=== PATIENT | male | born 1990 | race Caucasian/White ===

== ENCOUNTER 2017-04-04 19:02 | Emergency (ER) | payer BC ==
[~2017-04-04] VITALS: Ht 175.3 cm; Wt 81.6 kg
[~2017-04-04 19:02] MED LIST: LORA-404 PO; OXYC-197 PO; PARO20TA5 PO
[2017-04-04] MEDS ORDERED: PARO40TA PO (19:10)
--- NOTE | 2017-04-04 19:10 | ED General ---
General Chief Complaint: General Problems/Pain Stated Complaint: MEDICINE WITHDRAWL Source of Information: Patient Exam Limitations: No Limitations History of Present Illness Time Seen by Provider: 19:10 Initial Comments To ER with reports of being out of his Paxil 40 mg tablets which he takes daily and has taken daily for 2 years. This is taken for anxiety. He's been out of them for 4 days. He states that he has refills left on his bottle of Paxil but the pharmacy will not fill it because the prescriber who wrote this no longer practices. He is scheduled to see [facility] on Friday of next week. His symptoms of withdrawal including anxiety, shakiness, nausea and stuttering speech. Timing/Duration: 3-4 Days Severity: Moderate Allergies and Home Medications Allergies Coded Allergies: NKANo Known Allergies (Verified Allergy, Mild, 05/15/15) Home Medications Lorazepam 0.5 Mg Tablet, 0.5 MG PO BID PRN for ANXIETY, #14 Prescribed by: FELIPE WEATHERS on 08/06/162028 Oxycodone HCl/Acetaminophen 1 Each Tablet, 1-2 EACH PO Q6H, #35 Prescribed by: ELDER JOHNSON on 05/15/15 1855 Paroxetine HCl 20 Mg Tablet, 20 MG PO DAILY, (Reported) Paroxetine HCl 40 Mg Tablet, 40 MG PO DAILY, #30 Prescribed by: FELIPE WEATHERS on 04/04/171909 Constitutional: see HPI EENTM: see HPI Respiratory: no symptoms reported Cardiovascular: no symptoms reported Genitourinary: no symptoms reported Musculoskeletal: no symptoms reported Skin: no symptoms reported Psychiatric/Neurological: See HPI, Anxiety Hematologic/Lymphatic: No Symptoms Reported Past Ynwsyxu-Jxqtdh-Zxsenh Hx Patient Social History Recent Foreign Travel: No Contact w/Someone Who Travel: No Recent Hopitalizations: No Seasonal Allergies Seasonal Allergies: No Surgeries HX Surgeries: Yes (Bilateral ear tubes) Surgeries: Adenoidectomy, Appendectomy, Tonsillectomy Respiratory Hx Respiratory Disorders: Yes Respiratory Disorders: Asthma Cardiovascular Hx Cardiac Disorders: No Neurological Hx Neurological Disorders: No Reproductive System Hx Reproductive Disorders: No Genitourinary Hx Genitourinary Disorders: No Gastrointestinal Hx Gastrointestinal Disorders: No Musculoskeletal Hx Musculoskeletal Disorders: No Endocrine Hx Endocrine Disorders: No HEENT HX ENT Disorders: Yes (tubes in ears as child ) HEENT Disorders: Tonsilitis Cancer Hx Cancer: No Psychosocial Hx Psychiatric Problems: Yes Behavioral Health Disorders: Anxiety Integumentary HX Skin/Integumentary Disorder: No Blood Transfusions Hx Blood Disorders: No Adverse Reaction to a Blood Tr: No Family Medical History Family Medial History: Hypertension 19 MOTHER Physical Exam Vital Signs Vital Sign - Last 12Hours 04/04/17 19:08 Temp 98.8 Pulse 60 Resp 18 B/P (MAP) 142/75 Pulse Ox 98 Capillary Refill : General Appearance: No Apparent Distress, WD/WN Eyes: Bilateral Eye EOMI, Bilateral Eye Normal Inspection, Bilateral Eye PERRL HEENT: PERRL/EOMI, TMs Normal Neck: Full Range of Motion, Normal Inspection Respiratory: No Accessory Muscle Use, No Respiratory Distress Cardiovascular: Regular Rate, Rhythm, Normal Peripheral Pulses Gastrointestinal: Non Tender, Soft Extremity: Normal Capillary Refill, Normal Inspection Neurologic/Psychiatric: Alert, Oriented x3, No Motor/Sensory Deficits, Other ( He does have stuttering speech but is otherwise alert pleasant and answers questions appropriately.) Skin: Normal Color, Warm/Dry Progress/Results/Core Measures Results/Orders Vital Signs/I&O Vital Sign - Last 12Hours 04/04/17 19:08 Temp 98.8 Pulse 60 Resp 18 B/P (MAP) 142/75 Pulse Ox 98 Departure Impression Impression: Primary Impression: Medication withdrawal Disposition: 01 HOME, SELF-CARE Condition: Stable Departure-Patient Inst. Decision time for Depature: 19:09 Referrals: NO,LOCAL PHYSICIAN (PCP/Family) Primary Care Physician Patient Instructions: NO INSTRUCTIONS GIVEN Add. Discharge Instructions: 1. Follow-up with your regular doctor as scheduled. All discharge instructions reviewed with patient and/or family. Voiced understanding. Scripts Paroxetine HCl (Paxil) 40 Mg Tablet 40 MG PO DAILY, #30 TAB Prov: FELIPE WEATHERS APRN 04/04/17 FELIPE WEATHERS APRN Apr 04, 2017 19:10
[2017-04-04 19:12] VITALS: BP 142/75
--- OUTSIDE RECORDS SUMMARY | 2017-04-08 08:15 | XMS REPORT | Continuity of Care Document ---
Author Author [facility] Organization [facility] Address Unknown Phone Unavailable Allergies Active Description Code Type Severity Reaction Onset Reported/Identified Relationship to Patient Clinical Status Yes NKANo Known Allergies NKA Miscellaneous Allergy Mild N/A 05/15/2015 Medications Problems Date Dx Coded Attending Type Code Diagnosis Diagnosed By 07/05/2011 Ot 842.00 SPRAIN OF WRIST NOS 07/05/2011 Ot 959.3 ELB/FOREARM/WRST INJ NOS 07/05/2011 Ot E000.8 OTHER EXTERNAL CAUSE STATUS 07/05/2011 Ot E016.9 OTH ACT INVG PROPERTY LAND MAINT,BUILD 07/05/2011 Ot E849.0 ACCIDENT IN HOME 07/05/2011 Ot E928.9 ACCIDENT NOS 05/16/2015 ALEX GARNER, ELDER Ot 300.00 ANXIETY STATE NOS 05/16/2015 ALEX GARNER, ELDER Ot 493.90 ASTHMA, UNSPECIFIED 05/16/2015 ELDRE JOHNSON MD Ot 540.9 ACUTE APPENDICITIS NOS 08/06/2016 FELIPE WEATHERS APRN Ot F41.9 ANXIETY DISORDER, UNSPECIFIED 08/06/2016 FELIPE WEATHERS APRN Ot R07.89 OTHER CHEST PAIN 08/06/2016 FELIPE WEATHERS APRN Ot R07.9 CHEST PAIN, UNSPECIFIED 08/06/2016 FELIPE WEATHERS APRN Ot 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 Visit Date/Time Discharge Status Pt. Type Provider Facility Loc./Unit Complaint [id number] 04/04/2017 19:04:00 2016 19:12:00 DIS Emergency FELIPE WEATHERS APRN [facility] ER MEDICINE WITHDRAWL [id number] 08/06/2016 19:36:00 2015 21:02:00 DIS Emergency FELIPE WEATHERS APRN [facility] ER CHEST PRESSURE [id number] 05/15/2015 14:39:00 2014 09:45:00 DIS Outpatient ELDER JOHNSON MD [facility] APPENDICITIS [id number] 04/18/2014 09:55:00 2013 23:59:59 CLS Outpatient [id number] 10/31/2016 10:54:00 Document Registration [id number] 05/04/2015 09:49:00 Document Registration
== END 2017-04-04 19:12 | disposition home or self-care (01) ==
LOC: EDUNIT# 19:02 → ER 19:04
DX: F19.239 Other psychoactive substance dependence with withdrawal, unspecified (principal); F41.9 Anxiety disorder, unspecified; J45.909 Unspecified asthma, uncomplicated
CPT/HCPCS: 99281

== ENCOUNTER 2017-05-28 16:24 | Emergency (ER) | payer BC ==
[~2017-05-28] VITALS: Ht 175.3 cm; Wt 90.7 kg
[~2017-05-28 16:24] MED LIST changes: +PARO40TA PO
--- NOTE | 2017-05-28 16:36 | ED Lower Extremity ---
General Stated Complaint: RT FOOT PAIN Source: patient Exam Limitations: no limitations History of Present Illness Time seen by provider: 16:33 Initial Comments To ER with medial right foot pain intermittent for one week. No known injury. Pain is to the medial aspect of the ankle just inferior to the medial malleolus. Onset: just prior to arrival Severity: moderate Pain/Injury Location: right ankle Modifying Factors: Worse With Movement Allergies and Home Medications Allergies Coded Allergies: NKANo Known Allergies (Verified Allergy, Mild, 05/15/15) Home Medications Lorazepam 0.5 Mg Tablet, 0.5 MG PO BID PRN for ANXIETY, #14 Prescribed by: FELIPE WETAHERS on 08/06/162028 Oxycodone HCl/Acetaminophen 1 Each Tablet, 1-2 EACH PO Q6H, #35 Prescribed by: ELDER JOHNSON on 05/15/15 1855 Paroxetine HCl 20 Mg Tablet, 20 MG PO DAILY, (Reported) Paroxetine HCl 40 Mg Tablet, 40 MG PO DAILY, #30 Prescribed by: FELIPE WEATHERS on 04/04/17 1910 Constitutional: see HPI EENTM: see HPI Respiratory: no symptoms reported Cardiovascular: no symptoms reported Genitourinary: no symptoms reported Musculoskeletal: see HPI Skin: no symptoms reported Past Lfnwito-Llfswy-Ihdfgz Hx Patient Social History Recent Foreign Travel: No Contact w/Someone Who Travel: No Recent Hopitalizations: No Seasonal Allergies Seasonal Allergies: No Surgeries History of Surgeries: Yes (Bilateral ear tubes) Surgeries: Adenoidectomy, Appendectomy, Tonsillectomy Respiratory History of Respiratory Disorde: Yes Respiratory Disorders: Asthma Cardiovascular History of Cardiac Disorders: No Neurological History of Neurological Disord: No Reproductive System Hx Reproductive Disorders: No Gastrointestinal History of Gastrointestinal Di: No Musculoskeletal History of Musculoskeletal Dis: No Endocrine History of Endocrine Disorders: No HEENT HEENT Disorders: Tonsilitis Cancer History of Cancer: No Psychosocial History of Psychiatric Problem: Yes Behavioral Health Disorders: Anxiety Integumentary History of Skin or Integumenta: No Blood Transfusions History of Blood Disorders: No Adverse Reaction to a Blood Tr: No Family Medical History Family Medial History: Hypertension 19 MOTHER Physical Exam Vital Signs Capillary Refill : General Appearance: WD/WN, no apparent distress HEENT: PERRL/EOMI, normal ENT inspection Neck: non-tender, full range of motion Respiratory: normal breath sounds, no respiratory distress, no accessory muscle use Gastrointestinal: normal bowel sounds, non tender, soft Hips: bilateral hip non-tender, bilateral hip normal inspection, bilateral hip normal range of motion Legs: bilateral leg non-tender, bilateral leg normal inspection, bilateral leg normal range of motion Knees: bilateral knee non-tender, bilateral knee normal inspection, bilateral knee normal range of motion Ankles: bilateral ankle non-tender, bilateral ankle normal inspection, bilateral ankle normal range of motion Feet: bilateral foot non-tender, bilateral foot normal inspection, bilateral foot normal range of motion Neurologic/Psychiatric: alert, normal mood/affect, oriented x 3 Skin: warm/dry Comments There is tenderness to palpation to the medial aspect of the right ankle just inferior to the medial malleolus. There is no swelling ecchymosis erythema or abrasion. Progress/Results/Core Measures Results/Orders My Orders Orders - FELIPE WEATHERS APRN Ankle, Right, 3 Views (05/28/17 16:33) Departure Impression Impression: Primary Impression: Ankle pain Disposition: 01 HOME, SELF-CARE Condition: Stable Departure-Patient Inst. Decision time for Depature: 16:35 Referrals: NO,LOCAL PHYSICIAN (PCP/Family) Primary Care Physician Patient Instructions: NO INSTRUCTIONS GIVEN Add. Discharge Instructions: 1. Follow-up with one of the physicians listed. Call tomorrow to make an appointment to be seen 2. Tylenol and Motrin for pain. Elevate foot and ice pack as needed 1. 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
[2017-05-28 16:52] VITALS: BP 133/72
--- NOTE | 2017-05-28 16:58 | Diagnostic Imaging Report ---
INDICATION: Ankle pain. COMPARISON: None. FINDINGS: Three views of the right ankle are obtained. No acute fracture, malalignment, or osseous destructive process is seen. There is mild soft tissue swelling. The ankle joint space appears preserved. IMPRESSION: Mild soft tissue swelling without evidence of an acute osseous abnormality. Dictated by: Dictated on workstation # [id number]
== END 2017-05-28 16:52 | disposition home or self-care (01) ==
LOC: EDUNIT# 16:24 → ER 16:25
DX: M25.571 Pain in right ankle and joints of right foot (principal); J45.909 Unspecified asthma, uncomplicated; F41.9 Anxiety disorder, unspecified; Z90.49 Acquired absence of other specified parts of digestive tract; Z90.89 Acquired absence of other organs
CPT/HCPCS: 73610; 99283

== ENCOUNTER → 2018-03-19 | Outpatient (CLI) | payer BC ==
--- NOTE | 2018-03-19 16:01 | Diagnostic Imaging Report ---
EXAMINATION: Left foot radiographs, three views. COMPARISON: April 18, 2014. HISTORY: 27-year-old male, left foot pain. 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 There is no identified ankle joint effusion. There is no acute fracture. There is no identified residual fracture line of prior fracture. There is no periosteal reaction. There is no radiopaque foreign body. Bone mineralization and alignment are unremarkable. The joint spaces are well preserved. IMPRESSION: 1. Complete healing changes of prior fracture of the base of the fifth metatarsal. 2. Current radiographic evaluation of the left foot is unremarkable. Dictated by: Dictated on workstation # [id number]
== END ==
LOC: RAD 15:42
PROVIDERS: ATTEND Internal Medicine
DX: M25.572 Pain in left ankle and joints of left foot (principal); Z87.81 Personal history of (healed) traumatic fracture
CPT/HCPCS: 73630

== ENCOUNTER 2018-09-30 20:44 | Emergency (ER) | payer BC ==
[~2018-09-30] VITALS: Ht 175.3 cm; Wt 96.2 kg
[~2018-09-30 20:44] MED LIST changes: -OXYC-197 PO; +OXYC1TAB87 PO
[2018-09-30] MEDS ORDERED: NS IV 1000 ML 1,000 ML IV SCH (21:00)
[2018-09-30] MEDS ORDERED: IBUPROFEN 800 MG (MOTRIN) TAB PO ONE (21:00)
--- NOTE | 2018-09-30 21:01 | ED Back Pain ---
General Stated Complaint: LOWER BACK PAIN Source of Information: Patient Exam Limitations: No Limitations (FELIPE WEATHERS APRN) History of Present Illness Date Seen by Provider: Sep 30, 2018 Time Seen by Provider: 20:58 Initial Comments To ER with reports of midline low back pain that wraps around both flanks. This is been present for about 1.5 months. He denies any loss of sensation of his genitals, loss of control of bowel or bladder, denies fevers or chills denies falls or injury. Denies any history of cancer or IV drug use. He did develop some nausea and vomiting earlier today. He has not seen primary care for this. Location: Lumbar Spine, Paraspinous Muscles Timing/Duration: Other (1.5 months) Severity: Moderate Pain/Injury Location: Back Associated Symptoms: No fever; lower back pain (FELIPE WEATHERS APRN) Allergies and Home Medications Allergies Coded Allergies: NKANo Known Allergies (Verified Allergy, Mild, 05/15/15) Home Medications Diclofenac Potassium 50 Mg Tablet, 50 MG PO TID PRN for BACK PAIN Prescribed by: FEI NICKERSON on 09/30/18 2311 Lorazepam 0.5 Mg Tablet, 0.5 MG PO BID PRN for ANXIETY Prescribed by: FELIPE WEATHERS on 08/06/16 202 Oxycodone HCl/Acetaminophen 1 Each Tablet, 1-2 EACH PO Q6H Prescribed by: ELDER JOHNSON on 05/15/15 185 Paroxetine HCl 20 Mg Tablet, 20 MG PO DAILY, (Reported) Paroxetine HCl 40 Mg Tablet, 40 MG PO DAILY Prescribed by: FELIPE WEATHERS on 04/04/17 1910 Patient Home Medication List Home Medication List Reviewed: Yes (FELIPE WEATHERS APRN) Review of Systems Constitutional: see HPI; No chills, No fever EENTM: see HPI Respiratory: no symptoms reported Cardiovascular: no symptoms reported Genitourinary: no symptoms reported Musculoskeletal: see HPI Skin: no symptoms reported Psychiatric/Neurological: No Symptoms Reported (FELIPE WEATHERS APRN) Past Rxcvjuq-Bskiiz-Ksexbd Hx Patient Social History 2nd Hand Smoke Exposure: No Recent Foreign Travel: No Contact w/Someone Who Travel: No Recent Hopitalizations: No (FELIPE WEATHERS APRN) Seasonal Allergies Seasonal Allergies: No (FELIPE WEATHERS APRN) Past Medical History Surgeries: Yes (Bilateral ear tubes) Adenoidectomy, Appendectomy, Tonsillectomy Respiratory: Yes Asthma Cardiac: No Neurological: No Reproductive Disorders: No Gastrointestinal: No Musculoskeletal: No Endocrine: No Tonsilitis Cancer: No Psychosocial: Yes Anxiety Integumentary: No Blood Disorders: No Adverse Reaction/Blood Tranf: No (FELIPE WEATHERS APRN) Family Medical History Hypertension 19 MOTHER Physical Exam Vital Signs Vital Signs - First Documented 09/30/18 20:50 Temp 101.6 Pulse 123 Resp 20 B/P (MAP) 135/93 (107) Pulse Ox 96 O2 Delivery Room Air (FEI NICKERSON) Vital Signs Capillary Refill : (FELIPE WEATHERS APRN) Height, Weight, BMI Height: 5'9.00" Weight: 200lbs. oz. 90.258329jw; 26.58 BMI Method:Stated General Appearance: No Apparent Distress, WD/WN, Other (despite his denial of fevers at home he is in fact febrile here at 101.5, tachycardic at 120.) HEENT: PERRL/EOMI, TMs Normal Neck: Full Range of Motion, Normal Inspection Cardiovascular: Normal Peripheral Pulses, Tachycardia Respiratory: No Accessory Muscle Use, No Respiratory Distress Gastrointestinal: Normal Bowel Sounds, Non Tender, Soft Back: Normal Inspection Neurologic/Psychiatric: Alert, Oriented x3, No Motor/Sensory Deficits Skin: Normal Color (FELIPE WEATHERS APRN) Progress/Results/Core Measures Results/Orders Lab Results Laboratory Tests Test 09/30/18 21:00 09/30/18 21:05 09/30/18 21:34 Range/Units White Blood Count 11.0 4.3-11.0 10^3/uL Red Blood Count 5.50 4.35-5.85 10^6/uL Hemoglobin 15.9 13.3-17.7 G/DL Hematocrit 44 40-54 % Mean Corpuscular Volume 80 80-99 FL Mean Corpuscular Hemoglobin 29 25-34 PG Mean Corpuscular Hemoglobin Concent 36 32-36 G/DL Red Cell Distribution Width 12.8 10.0-14.5 % Platelet Count 335 130-400 10^3/uL Mean Platelet Volume 10.7 H 7.4-10.4 FL Neutrophils (%) (Auto) 80 H 42-75 % Lymphocytes (%) (Auto) 14 12-44 % Monocytes (%) (Auto) 6 0-12 % Eosinophils (%) (Auto) 0 0-10 % Basophils (%) (Auto) 0 0-10 % Neutrophils # (Auto) 8.8 H 1.8-7.8 X 10^3 Lymphocytes # (Auto) 1.5 1.0-4.0 X 10^3 Monocytes # (Auto) 0.6 0.0-1.0 X 10^3 Eosinophils # (Auto) 0.0 0.0-0.3 10^3/uL Basophils # (Auto) 0.0 0.0-0.1 10^3/uL Sodium Level 137 135-145 MMOL/L Potassium Level 3.6 3.6-5.0 MMOL/L Chloride Level 101 98-107 MMOL/L Carbon Dioxide Level 25 21-32 MMOL/L Anion Gap 11 5-14 MMOL/L Blood Urea Nitrogen 12 7-18 MG/DL Creatinine 0.87 0.60-1.30 MG/DL Estimat Glomerular Filtration Rate > 60 BUN/Creatinine Ratio 14 Glucose Level 109 H 70-105 MG/DL Calcium Level 9.6 8.5-10.1 MG/DL Corrected Calcium 8.5-10.1 MG/DL Total Bilirubin 0.6 0.1-1.0 MG/DL Aspartate Amino Transf (AST/SGOT) 27 5-34 U/L Alanine Aminotransferase (ALT/SGPT) 66 H 0-55 U/L Alkaline Phosphatase 65 40-136 U/L Total Protein 7.6 6.4-8.2 GM/DL Albumin 4.7 H 3.2-4.5 GM/DL Group A Streptococcus Screen NEGATIVE NEGATIVE Urine Color YELLOW Urine Clarity CLEAR Urine pH 6 5-9 Urine Specific [place] 1.020 1.016-1.022 Urine Protein 2+ H NEGATIVE Urine Glucose (UA) NEGATIVE NEGATIVE Urine Ketones 1+ H NEGATIVE Urine Nitrite NEGATIVE NEGATIVE Urine Bilirubin NEGATIVE NEGATIVE Urine Urobilinogen 1 NORMAL MG/DL Urine Leukocyte Esterase 1+ H NEGATIVE Urine RBC (Auto) NEGATIVE NEGATIVE Urine RBC NONE /HPF Urine WBC 0-2 /HPF Urine Crystals NONE /LPF Urine Bacteria NEGATIVE /HPF Urine Casts NONE /LPF Urine Mucus LARGE H /LPF Urine Culture Indicated NO (FEI NICKERSON) Micro Results Microbiology 09/30/18 Influenza Types A,B Antigen ([place]) - Final, Complete (FEI NICKERSON) Medications Given in ED Current Medications Medications Dose Ordered Sig/Jet Route Start Time Stop Time Status Last Admin Dose Admin Ibuprofen 800 mg ONCE ONCE PO 09/30/18 21:00 09/30/18 21:01 DC 09/30/18 21:19 800 MG Iohexol 100 ml ONCE ONCE IV 09/30/18 22:15 09/30/18 22:16 DC 09/30/18 22:19 100 ML Sodium Chloride 100 ml ONCE ONCE IV 09/30/18 22:15 09/30/18 22:16 DC 09/30/18 22:19 100 ML (FEI NICKERSON) Vital Signs/I&O 09/30/18 20:50 Temp 101.6 Pulse 123 Resp 20 B/P (MAP) 135/93 (107) Pulse Ox 96 O2 Delivery Room Air (FEI NICKERSON) Diagnostic Imaging Diagonstic Imaging: CT Plain Films/CT/US/NM/MRI: other (lumbar spine without contrast) Comments No fracture or alignment. No destructive bony changes. Reviewed: Reviewed [place] Study, Reviewed by Me (FEI NICKERSON) Departure Communication (Admissions) 2211-his labs are unremarkable. He was unaware of his fever. Most likely that he has some musculoskeletal low back pain and a separate viral illness which accounts for his nausea this morning and fever currently. We will proceed with CT to evaluate for vertebral osteomyelitis and any findings that may be suggestive of epidural abscess though CT would be a suboptimal study for that. (FELIPE WEATHERS APRN) Impression Primary Impression: subacute low back pain Additional Impression: Viral syndrome Disposition: 01 HOME, SELF-CARE Condition: Stable Departure-Patient Inst. Decision time for Depature: 22:13 (FELIPE WEATHERS APRN) Referrals: RODO CLAUDIO MD (PCP) Primary Care Physician Patient Instructions: Low Back Pain (DC) Scripts Diclofenac Potassium (Diclofenac Potassium) 50 Mg Tablet 50 MG PO TID PRN for BACK PAIN for 10 Days, #30 TAB 0 Refills Prov: FEI NICKERSON 09/30/18 FELIPE WEATHERS APRN Sep 30, 2018 21:01 FEI NICKERSON Sep 30, 2018 23:07
[2018-09-30 21:11] LABS: BASOPHILS % (AUTO) 0 % (0-10); EOSINOPHILS % (AUTO) 0 % (0-10); HEMATOCRIT 44 % (40-54); HEMOGLOBIN 15.9 G/DL (13.3-17.7); LYMPHOCYTES # (AUTO) 1.5 X 10^3 (1.0-4.0); LYMPHOCYTES % (AUTO) 14 % (12-44); MEAN CORPUSCULAR HEMOGLOBIN 29 PG (25-34); MEAN CORPUSCULAR HGB CONC 36 G/DL (32-36); MEAN CORPUSCULAR VOLUME 80 FL (80-99); MEAN PLATELET VOLUME 10.7 FL (7.4-10.4); MONOCYTES # (AUTO) 0.6 X 10^3 (0.0-1.0); MONOCYTES % (AUTO) 6 % (0-12); NEUTROPHILS # (AUTO) 8.8 X 10^3 (1.8-7.8); NEUTROPHILS % (AUTO) 80 % (42-75); PLATELET COUNT 335 10^3/uL (130-400); RED CELL DISTRIBUTION WIDTH 12.8 % (10.0-14.5)
[2018-09-30 21:34] LABS: ALANINE AMINOTRANSFERASE 66 U/L (0-55); ALBUMIN 4.7 GM/DL (3.2-4.5); ALKALINE PHOSPHATASE 65 U/L (40-136); BILIRUBIN,TOTAL 0.6 MG/DL (0.1-1.0); BUN/CREATININE RATIO 14; CALCIUM 9.6 MG/DL (8.5-10.1); CARBON DIOXIDE 25 MMOL/L (21-32); CHLORIDE 101 MMOL/L (98-107); CREATININE SERUM 0.87 MG/DL (0.60-1.30); GFR ESTIMATED > 60; GLUCOSE 109 MG/DL (70-105); POTASSIUM 3.6 MMOL/L (3.6-5.0); SODIUM 137 MMOL/L (135-145); TOTAL PROTEIN 7.6 GM/DL (6.4-8.2)
[2018-09-30 21:41] LABS: BILIRUBIN,URINE NEGATIVE (NEGATIVE); CLARITY,URINE CLEAR; COLOR,URINE YELLOW; GLUCOSE, URINE (UA) NEGATIVE (NEGATIVE); KETONES,URINE 1+ (NEGATIVE); LEUKOCYTE ESTERASE ,URINE 1+ (NEGATIVE); NITRITE,URINE NEGATIVE (NEGATIVE); PH,URINE 6 (5-9); PROTEIN,URINE 2+ (NEGATIVE); UROBILINOGEN,URINE 1 MG/DL (NORMAL)
[2018-09-30 21:53] LABS: BACTERIA,URINE NEGATIVE /HPF; WBC,URINE 0-2 /HPF
[2018-09-30] MEDS ORDERED: IOHEXOL 350 MG/ML 100 ML (OMNIPAQUE 350) VIAL IV ONE (22:15)
[2018-09-30] MEDS ORDERED: NS 100 ML (IVPB) BAG IV ONE (22:15)
[2018-09-30] MEDS ORDERED: RECEIVED CONTRAST (Hold Metformin) IV SCH (22:15)
[2018-09-30] MEDS ORDERED: DICL50TA4 PO (23:11)
[2018-09-30 23:15] VITALS: BP 135/93
--- NOTE | 2018-10-01 05:15 | Diagnostic Imaging Report ---
PROCEDURE: CT lumbar spine with contrast. TECHNIQUE: Multiple contiguous axial images were obtained through the lumbar spine after the intrathecal administration of contrast. Sagittal and coronal reformations were then performed. INDICATION: Low back pain for years, no known injury. Pain increasing in severity with the day with fever, nausea and headache. FINDINGS: Lumbar spinal alignment anatomic. Lumbar vertebral body heights are maintained. No acute bony abnormality or destructive bony change suggested. Scattered areas of small Schmorl's nodes deformity is present. Disc spaces demonstrate fairly good preservation of the disc space height. However, there is suggestion of some broad-based disc bulge. The spinal canal is fairly small in caliber. There does appear to be areas of bilateral foraminal narrowing at multiple levels. Likely change reflecting hepatic steatosis. There is contrast material within bilateral renal collecting systems. IMPRESSION: 1. No findings to suggest acute fracture or abnormal alignment. No significant destructive bony changes. 2. There is suggestion of scattered areas of foraminal narrowing owing to small broad-based disc bulge. If further assessment is desired, MRI would be recommended. A preliminary report was provided by [facility]. Dictated by: Dictated on workstation # [id number]
== END 2018-09-30 23:15 | disposition home or self-care (01) ==
LOC: EDUNIT# 20:44 → ER 20:45
DX: M54.5 Low back pain (principal); B34.9 Viral infection, unspecified; J45.909 Unspecified asthma, uncomplicated; F41.9 Anxiety disorder, unspecified; Z90.89 Acquired absence of other organs; Z90.49 Acquired absence of other specified parts of digestive tract; Z96.22 Myringotomy tube(s) status
CPT/HCPCS: 36415; 72132; 80053; 81000; 85025; 87430; 87804; 96360

== ENCOUNTER → 2019-01-27 | Outpatient (CLI) | payer BC ==
[~2019-01-27] MED LIST changes: +DICL50TA4 PO
--- NOTE | 2019-01-27 10:25 | Diagnostic Imaging Report ---
INDICATION: Ankle pain. Three views of the left ankle were obtained. FINDINGS: The alignment is normal. There is no fracture or dislocation. The plafonds and talar dome are intact. Soft tissue swelling laterally. IMPRESSION: Soft tissue swelling laterally, however, no acute fracture or dislocation. Dictated by: Dictated on workstation # [id number]
== END ==
LOC: RAD 09:37
PROVIDERS: ATTEND Nurse Practitioner
DX: M79.89 Other specified soft tissue disorders (principal)
CPT/HCPCS: 73610

== ENCOUNTER → 2019-02-08 | Outpatient (CLI) | payer BC, OTHER ==
--- NOTE | 2019-02-08 10:00 | Diagnostic Imaging Report ---
PROCEDURE: MRI left joint lower extremity without contrast. TECHNIQUE: Multiplanar, multisequence non contrast-enhanced MRI of the left lower extremity was accomplished. Indication: Left ankle pain. Comparisons: Left ankle radiographs from 02/04/2019 Findings: TENDONS: The Achilles has minimal tendinopathy present but is intact. Peroneus longus and brevis tendons are normal. Peroneal retinaculum remains intact. The posterior tibialis, flexor digitorum longus and flexor hallucis longus are intact. Anterior tibialis, extensor hallucis longus and extensor digitorum longus are normal. LIGAMENTS: The anterior and posterior distal tibiofibular ligaments are intact. Anterior talofibular, calcaneofibular and posterior talofibular ligaments are normal. Medial deltoid ligamentous complex is intact. BONES AND CARTILAGE: No osteochondral lesion of the talar dome. There is a small amount of bone marrow edema like signal involving the talar body and opposing aspect of the calcaneus near the posterior subtalar facet. No macroscopic fracture lines are seen. Benign T1 and T2 hypointense sclerotic focus in the posterior talus indicative of bone island. An os trigonum is present without features of painful os syndrome. SOFT TISSUES: No evidence of plantar fasciitis. No abnormal soft tissue scar/fibrosis within the tarsal canal/sinus tarsi or tarsal tunnel. No ankle joint effusion. There is a small amount of soft tissue edema surrounding the posterior subtalar facet is likely reactive in nature. IMPRESSION: 1. Mild bone marrow edema like signal within the talus and calcaneus on each side of the posterior subtalar facet. There are no macroscopic fracture lines; this may represent stress reaction or bone contusions. Alternatively, instability of the posterior subtalar facet may be the source of bone marrow edema. No tarsal coalition. 2. No tendon or ligament tear. 3. A small amount of reactive soft tissue edema seen surrounding the posterior subtalar facet. Dictated by: Dictated on workstation # [id number]
== END ==
LOC: RAD 08:46
PROVIDERS: ATTEND Physician Assistant
DX: M89.9 Disorder of bone, unspecified (principal); M79.89 Other specified soft tissue disorders; M25.572 Pain in left ankle and joints of left foot
CPT/HCPCS: 73721

== ENCOUNTER 2020-05-15 19:17 | Emergency (ER) | payer BC ==
[~2020-05-15] VITALS: Ht 180 cm; Wt 99.7 kg
[2020-05-15] MEDS ORDERED: MELO15TA14 PO (19:57)
[2020-05-15] MEDS ORDERED: CYCL10TA9 PO (19:57)
--- NOTE | 2020-05-15 19:57 | ED Back Pain ---
General Chief Complaint: Back Problems Stated Complaint: BACK PAIN Nursing Triage Note: states injured at work, pushing a cart over a bump felt a pull. 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 Other Comments PCP: DR. CLAUDIO Allergies and Home Medications Allergies Coded Allergies: Koki Known Allergies (Verified Allergy, Mild, 05/15/15) Home Medications Cyclobenzaprine HCl 10 Mg Tablet, 10 MG PO Q8H PRN for SPASMS Prescribed by: HARRY COLE on 05/15/201956 Diclofenac Potassium 50 Mg Tablet, 50 MG PO TID PRN for BACK PAIN Prescribed by: FEI NICKERSON on 09/30/18 2311 Lorazepam 0.5 Mg Tablet, 0.5 MG PO BID PRN for ANXIETY Prescribed by: FELIPE WEATHERS on 08/06/162028 Meloxicam 15 Mg Tablet, 15 MG PO DAILY Prescribed by: HARRY COLE on 05/15/201956 Oxycodone HCl/Acetaminophen 1 Each Tablet, 1-2 EACH PO Q6H Prescribed by: ELDER JOHNSON on 05/15/151854 Paroxetine HCl 20 Mg Tablet, 20 MG PO DAILY, (Reported) Paroxetine HCl 40 Mg Tablet, 40 MG PO DAILY Prescribed by: FELIPE WEATHERS on 04/04/171909 Patient Home Medication List Home Medication List Reviewed: Yes Review of Systems Constitutional: no symptoms reported Respiratory: no symptoms reported Cardiovascular: no symptoms reported Gastrointestinal: no symptoms reported Genitourinary: no symptoms reported Musculoskeletal: see HPI, back pain Skin: no symptoms reported Psychiatric/Neurological: No Symptoms Reported Past [id number]-[id number] Hx Past Med/Social Hx: Reviewed and Corrections made Patient Social History Alcohol Use: Occasionally Uses Alcohol Beverage of Choice: Beer Recreational Drug Use: No Smoking Status: Never a Smoker 2nd Hand Smoke Exposure: No Recent Foreign Travel: No Contact w/Someone Who Travel: No Recent Infectious Disease Expo: No Recent Hopitalizations: No Physical Abuse: No Sexual Abuse: No Mistreated: No Fear: No Immunizations Up To Date Date of Influenza Vaccine: May 15, 2020 Seasonal Allergies Seasonal Allergies: No Past Medical History Surgeries: Yes (Bilateral ear tubes) Adenoidectomy, Appendectomy, Tonsillectomy Respiratory: Yes Asthma Cardiac: No Neurological: No Reproductive Disorders: No Gastrointestinal: No Musculoskeletal: No Endocrine: No HEENT: Yes Chronic Ear Infection, Tonsilitis Cancer: No Psychosocial: Yes Anxiety Integumentary: No Blood Disorders: No Adverse Reaction/Blood Tranf: No Family Medical History Hypertension 19 MOTHER Physical Exam Vital Signs Vital Signs - First Documented 05/15/20 19:41 Temp 36.9 Pulse 100 Resp 20 B/P (MAP) 166/123 (137) Pulse Ox 96 O2 Delivery Room Air Capillary Refill : Less Than 3 Seconds Height, Weight, BMI Height: 5'9.00" Weight: 212lbs. oz. 96.212889ka; 30.00 BMI Method:Stated General Appearance: No Apparent Distress, WD/WN, Other (WALKS UPRIGHT AND MOVES WITHOUT DIFFICULTY) Neck: Full Range of Motion, Normal Inspection, Non Tender, Supple Cardiovascular: Regular Rate, Rhythm, No Murmur, Normal Peripheral Pulses Respiratory: Chest Non Tender, Normal Breath Sounds, No Accessory Muscle Use Peripheral Pulses: 2+ Dorsalis Pedis (R), 2+ Left Dors-Pedis (L), 2+ Radial Pulses (R), 2+ Radial Pulses (L) Gastrointestinal: Soft Back: No CVA Tenderness, Other (MILD DIFFUSE LUMBAR AREA TENDERNESS. DTR'S INTACT. NEGATIVE STRAIGHT LEG RAISING BILATERALLY. 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 Norm as Tested Skin: Normal Color, Warm/Dry; No Rash Progress/Results/Core Measures Results/Orders My Orders Orders - DOUGLAS,HARRY K DO Ketorolac Injection (Toradol Injection) (05/15/20 20:00) Orphenadrine Inj (Ed Only) (Norflex Inje (05/15/20 20:00) Medications Given in ED Current Medications Medications Dose Ordered Sig/Jet Route Start Time Stop Time Status Last Admin Dose Admin Ketorolac Tromethamine 60 mg ONCE ONCE IM 05/15/20 20:00 05/15/20 20:01 DC 05/15/20 20:11 60 MG Orphenadrine Citrate 60 mg ONCE ONCE IM 05/15/20 20:00 05/15/20 20:01 DC 05/15/20 20:10 60 MG Vital Signs/I&O 05/15/20 05/15/20 19:41 20:21 Temp 36.9 37.0 Pulse 100 88 Resp 20 18 B/P (MAP) 166/123 (137) 160/99 Pulse Ox 96 99 O2 Delivery Room Air Room Air Blood Pressure Mean: 137 Departure Impression Primary Impression: Acute lumbar myofascial strain Disposition: HOME, SELF-CARE Condition: Stable Departure-Patient Inst. Referrals: RODO CLAUDIO MD (PCP/Family) Primary Care Physician Patient Instructions: Lumbar Muscle Strain (DC) Add. Discharge Instructions: MOIST HEAT TO SORE AREAS AT 20 MINUTE INTERVALS NO LIFTING OVER 10 BLS, NO TWISTING OR BENDING AT WAIST FOR 1 WEEK FOLLOW UP WITH YOUR DR IN 1 WEEK IF NO BETTER All discharge instructions reviewed with patient and/or family. Voiced understanding. Scripts Cyclobenzaprine HCl (Cyclobenzaprine HCl) 10 Mg Tablet 10 MG PO Q8H PRN for SPASMS, #15 TAB 0 Refills Prov: HARRY COLE DO 05/15/20 Meloxicam (Mobic) 15 Mg Tablet 15 MG PO DAILY, #10 TAB Prov: HARRY COLE DO 05/15/20 HARRY COLE DO May 15, 2020 19:57
[2020-05-15] MEDS ORDERED: KETOROLAC 60 MG/2 ML VIAL IM ONE (20:00)
[2020-05-15] MEDS ORDERED: ORPHENADRINE 60 MG/2 ML (NORFLEX) AMP (ED ONLY) IM ONE (20:00)
[2020-05-15 20:21] VITALS: BP 160/99
== END 2020-05-15 20:20 | disposition home or self-care (01) ==
LOC: EDUNIT# 19:17 → ER 19:19
DX: S39.012A Strain of muscle, fascia and tendon of lower back, initial encounter (principal); F41.9 Anxiety disorder, unspecified; Z82.49 Family history of ischemic heart disease and other diseases of the circulatory system; X50.0XXA Overexertion from strenuous movement or load, initial encounter; Y92.59 Other trade areas as the place of occurrence of the external cause; Y99.0 Civilian activity done for income or pay
CPT/HCPCS: 99284